=== PATIENT | female | born 1995 | race Hispanic/Latino ===

== ENCOUNTER → 2018-03-31 | Outpatient (CLI) | payer OTHER ==
[~2018-03-31] MED LIST: ISOVUE-370 76% 100ML VIAL (Q9967) As Ordered ONE
--- NOTE | 2018-03-31 16:12 | REP ---
HYSTEROSALPINGOGRAM: 03/31/2018. Clinical history: Primary infertility. Findings: No prior studies. Examination performed with fluoroscopy provided to Dr. Clark of the gynecology division. Imaging for three separate injection attempts with filling of the endometrial cavity which showed no filling defects or synechiae. There was never any interstitial or isthmic tube identified. Maximum pressure with significant patient discomfort was achieved with each injection attempt until the balloon was discharged from the cervix. Impression: 1. No filling defects or abnormalities visible in the endometrial cavity. 2. Non filling of both tubes. No interstitial or isthmic tube filling is identified on either side. This presumes obstruction of those tubes. Fluoroscopy time: 0.6 minutes. Electronically Signed by Rehan Morales MD 03/31/2018 07:36 P
== END ==
LOC: M RADPRO 12:05
PROVIDERS: ATTEND Obstetrics & Gynecology
DX: N97.9 Female infertility, unspecified (principal)
CPT/HCPCS: 58340; 74740; Q9967